=== PATIENT | female | born 1980 | race Caucasian/White ===

== ENCOUNTER → 2017-04-07 | Outpatient (CLI) | payer MEDICAID ==
[~2017-04-07] MED LIST: ALBU18HF PO; BECL8.7A5 INH; CHOL10003 PO; DIPH12.521 PO; OMEG1CAP6 PO
== END | disposition home or self-care (01) ==
LOC: STAR 14:34
PROVIDERS: ATTEND Obstetrics & Gynecology
DX: Z01.818 Encounter for other preprocedural examination (principal)
CPT/HCPCS: 36415; 84703; 85025

== ENCOUNTER 2017-04-14 05:50 | Day surgery (SDC) | payer MEDICAID ==
[~2017-04-14] VITALS: Ht 167.6 cm; Wt 104.0 kg
[2017-04-14] MEDS ORDERED: BUPIVACAINE/PF 0.25% ONE (06:36)
[2017-04-14] MEDS ORDERED: EPINEPHRINE 1 MG/ML, 1ML ONE (06:36)
[2017-04-14] MEDS ORDERED: SILVER NITRATE STICK TP ONE (06:36)
[2017-04-14] MEDS ORDERED: LIDOCAINE 1%, 2ML ONE (06:39)
[2017-04-14 06:52] VITALS: BP 119/83
[2017-04-14] MEDS ORDERED: LACTATED RINGERS 1,000 ML IV SCH (07:11)
[2017-04-14] MEDS ORDERED: FENTANYL PF 250 MCG/5ML ONE (07:20)
[2017-04-14] MEDS ORDERED: MIDAZOLAM 1 MG/ML, 2ML ONE (07:20)
[2017-04-14] MEDS ORDERED: LIDOCAINE 1%, 2ML SQ PRN (07:30)
[2017-04-14 07:32] LABS: HCG UR OBC PASS
[2017-04-14] MEDS ORDERED: DEXAMETHASONE 4 MG/ML, 1ML ONE (07:35)
[2017-04-14] MEDS ORDERED: SUCCINYLCHOLINE 20 MG/ML, 10ML ONE (07:35)
[2017-04-14] MEDS ORDERED: ONDANSETRON 2MG/ML, 2ML ONE (07:35)
[2017-04-14] MEDS ORDERED: GLYCOPYRROLATE 0.2MG/1ML ONE (07:35)
[2017-04-14] MEDS ORDERED: NEOSTIGMINE 1 MG/ML, 10ML ONE (07:35)
[2017-04-14] MEDS ORDERED: CEFAZOLIN 1,000 MG ONE (07:35)
[2017-04-14] MEDS ORDERED: PROPOFOL 10 MG/ML, 20ML ONE (07:35)
[2017-04-14] MEDS ORDERED: ROCURONIUM 10 MG/ML ONE (07:35)
[2017-04-14] MEDS ORDERED: LABETALOL 5MG/ML, 20ML IV PRN (08:30)
[2017-04-14] MEDS ORDERED: ONDANSETRON 2MG/ML, 2ML IVPush PRN (08:30)
[2017-04-14] MEDS ORDERED: hydrALAzine 20 MG/ML, 1ML IV PRN (08:30)
[2017-04-14] MEDS ORDERED: FENTANYL PF 100 MCG/2ML IV PRN (08:30)
[2017-04-14] MEDS ORDERED: METOCLOPRAMIDE 5 MG/ML, 2ML IV PRN (08:30)
[2017-04-14] MEDS ORDERED: OXYcodone 5 MG/5 ML ORAL.SOL UDC PO PRN (08:30)
[2017-04-14] MEDS ORDERED: HYDROmorphone 1 MG/ML, 1ML IV PRN (08:30)
[2017-04-14] MEDS ORDERED: ACETAMINOPHEN 325 MG TABLET PO PRN (08:30)
[2017-04-14] MEDS ORDERED: ACETAMINOPHEN 325 MG/10.15 ML UDC ONE (09:26)
[2017-04-14] MEDS ORDERED: OXYcodone 5 MG/5 ML ORAL.SOL UDC ONE (09:26)
[2017-04-14] MEDS ORDERED: FENTANYL PF 100 MCG/2ML ONE (09:28)
== END 2017-04-14 11:40 ==
LOC: OUT 05:50
PROVIDERS: ATTEND Obstetrics & Gynecology
DX: N92.0 Excessive and frequent menstruation with regular cycle (principal); N94.6 Dysmenorrhea, unspecified; N73.6 Female pelvic peritoneal adhesions (postinfective); E78.00 Pure hypercholesterolemia, unspecified; J44.9 Chronic obstructive pulmonary disease, unspecified; Z98.890 Other specified postprocedural states
CPT/HCPCS: 36415; 58661; 58662; 81025; 86850; 86900; 88302; 88305; J0171; J0330; J0690; J1100; J2250; J2405; J2704; J2710; J3010; J3490

== ENCOUNTER 2017-06-16 09:13 | Emergency (ER) | payer MEDICAID ==
[~2017-06-16] VITALS: Ht 167.6 cm; Wt 106.5 kg
[~2017-06-16 09:13] MED LIST changes: -BECL8.7A5 INH; +BECL8.7A7 INH
[2017-06-16] MEDS ORDERED: CHOL200074 PO (09:47)
[2017-06-16 10:18] LABS: HEMATOCRIT 40.6 % (34.6-47.8); HEMOGLOBIN 13.7 g/dL (11.7-16.4); WHITE BLOOD COUNT 5.1 x10^3/uL (3.4-10)
[2017-06-16 10:25] LABS: ASPARTATE AMINO TRANSFERASE 18 U/L (15-37); BLOOD UREA NITROGEN 9 mg/dL (7-18)
[2017-06-16 11:54] VITALS: BP 116/72
== END 2017-06-16 11:57 | disposition home or self-care (01) ==
LOC: ED 11:29
DX: S39.011A Strain of muscle, fascia and tendon of abdomen, initial encounter (principal); R10.11 Right upper quadrant pain; R10.12 Left upper quadrant pain; R10.31 Right lower quadrant pain; R10.32 Left lower quadrant pain; X58.XXXA Exposure to other specified factors, initial encounter; Y93.89 Activity, other specified; Y92.89 Other specified places as the place of occurrence of the external cause; Y99.8 Other external cause status
CPT/HCPCS: 36415; 74020; 80053; 81003; 83690; 84703; 85025; 99285

== ENCOUNTER 2017-11-26 16:02 | Emergency (ER) | payer MEDICAID ==
[~2017-11-26] VITALS: Ht 167.6 cm; Wt 97.3 kg
[~2017-11-26 16:02] MED LIST changes: +CHOL200074 PO
[2017-11-26] MEDS ORDERED: IBUPROFEN 200 MG TABLET ONE (16:51)
[2017-11-26] MEDS ORDERED: IBUPROFEN 200 MG TABLET PO ONE (17:00)
[2017-11-26 18:04] VITALS: BP 124/79
== END 2017-11-26 18:06 | disposition home or self-care (01) ==
LOC: ED 17:50
DX: K42.9 Umbilical hernia without obstruction or gangrene (principal); J45.909 Unspecified asthma, uncomplicated; J44.9 Chronic obstructive pulmonary disease, unspecified
CPT/HCPCS: 76705; 99284

== ENCOUNTER → 2017-12-26 | Outpatient (CLI) | payer MEDICAID ==
[~2017-12-26] MED LIST changes: +PROP10TA PO; +ZIPR60CA3 PO
== END ==
LOC: STAR 08:57
PROVIDERS: ATTEND Surgery
DX: Z02.9 Encounter for administrative examinations, unspecified (principal)

== ENCOUNTER 2018-01-04 09:36 | Day surgery (SDC) | payer MEDICAID ==
[~2018-01-04] VITALS: Ht 167.6 cm; Wt 98.6 kg
[~2018-01-04 09:36] MED LIST changes: +BUPIVACAINE/PF 0.5% ONE
[2018-01-04] MEDS ORDERED: LACTATED RINGERS 1,000 ML IV SCH (10:10)
[2018-01-04 10:11] VITALS: BP 124/76
[2018-01-04 10:29] LABS: HCG UR SG 1.023 (1.003-1.030)
[2018-01-04] MEDS ORDERED: FENTANYL PF 250 MCG/5ML ONE (11:40)
[2018-01-04] MEDS ORDERED: MIDAZOLAM 1 MG/ML, 2ML ONE (11:40)
[2018-01-04] MEDS ORDERED: NEOSTIGMINE 1 MG/ML, 10ML ONE (12:22)
[2018-01-04] MEDS ORDERED: PROPOFOL 10 MG/ML, 20ML ONE (12:22)
[2018-01-04] MEDS ORDERED: ALBUTEROL SULFATE 200 PUFFS/8.5 GR INH ONE (12:22)
[2018-01-04] MEDS ORDERED: CEFAZOLIN 1,000 MG ONE (12:22)
[2018-01-04] MEDS ORDERED: DEXAMETHASONE 4 MG/ML, 1ML ONE (12:22)
[2018-01-04] MEDS ORDERED: GLYCOPYRROLATE 0.2MG/1ML, 5ML ONE (12:22)
[2018-01-04] MEDS ORDERED: ONDANSETRON 2MG/ML, 2ML ONE (12:22)
[2018-01-04] MEDS ORDERED: ROCURONIUM 10 MG/ML,10ML ONE ×2 (12:22)
[2018-01-04] MEDS ORDERED: PROMETHAZINE 25 MG/ML, 1ML IV PRN (13:30)
[2018-01-04] MEDS ORDERED: LORazepam 2 MG/ML, 1ML IVPush PRN (13:30)
[2018-01-04] MEDS ORDERED: MEPERIDINE/PF 25MG/0.5ML IVPush PRN (13:30)
[2018-01-04] MEDS ORDERED: hydrALAzine 20 MG/ML, 1ML IV PRN (13:30)
[2018-01-04] MEDS ORDERED: morphine SULFATE 10 MG/ML, 1ML IV PRN (13:30)
[2018-01-04] MEDS ORDERED: ACETAMINOPHEN 325 MG TABLET PO PRN (13:30)
[2018-01-04] MEDS ORDERED: HYDROmorphone 1 MG/ML, 1ML IV PRN (13:30)
[2018-01-04] MEDS ORDERED: OXYcodone 5 MG/5 ML ORAL.SOL UDC PO PRN ×2 (13:30→14:00)
[2018-01-04] MEDS ORDERED: PROMETHAZINE 12.5 MG SUPP PR PRN (13:30)
[2018-01-04] MEDS ORDERED: METOPROLOL 1 MG/ML, 5ML IV PRN (13:30)
[2018-01-04] MEDS ORDERED: ALBUTEROL SULFATE 2.5 MG/3 ML NPPB PRN (13:30)
[2018-01-04] MEDS ORDERED: morphine SULFATE 10 MG/ML, 1ML IVPush PRN (14:00)
[2018-01-04] MEDS ORDERED: ACETAMINOPHEN 650 MG/20.3 ML UDC ONE (14:10)
[2018-01-04] MEDS ORDERED: FENTANYL PF 100 MCG/2ML ONE (14:10)
[2018-01-04] MEDS ORDERED: OXYcodone 5 MG/5 ML ORAL.SOL UDC ONE (14:10)
[2018-01-04] MEDS: FENTANYL PF 100 MCG/2ML IV PRN ×2 (14:12→14:38)
[2018-01-04] MEDS ORDERED: MEPERIDINE/PF 25MG/0.5ML ONE (14:13)
== END 2018-01-04 17:15 | disposition home or self-care (01) ==
LOC: OUT 09:36
PROVIDERS: ATTEND Surgery
DX: K43.2 Incisional hernia without obstruction or gangrene (principal); F17.210 Nicotine dependence, cigarettes, uncomplicated; J44.9 Chronic obstructive pulmonary disease, unspecified; E66.9 Obesity, unspecified; Z68.35 Body mass index [BMI] 35.0-35.9, adult
CPT/HCPCS: 49654; 81025; C1781; J0690; J1100; J2175; J2250; J2405; J2704; J2710; J3010; J3490; J7120; S2900